=== PATIENT | male | born 1960 | race Hispanic/Latino ===

== ENCOUNTER 2018-01-06 01:17 | Emergency (ER) | payer SELFPAY ==
[2018-01-06] MEDS ORDERED: LIDOCAINE 1% W/EPI 1:100,000 MDV 50 ML VIAL ONE (01:27)
[2018-01-06] MEDS ORDERED: NA CHLORIDE 0.9% 1,000 ML ONE ×2 (01:37→03:25)
[2018-01-06 01:47] LABS: Absolute Monocytes 0.6 K/uL (0.1-1.3); Absolute Neutrophil 7.1 K/uL (1.8-8.0); Basophils % 0.7 % (0-1.3); Eosinophils % 0.7 % (0-4.4); Hematocrit 39.5 % (39.6-49.0); Lymphocytes % 11.4 % (15.3-44.8); MCH 30.7 pg (27.0-35.0); MCV 91.7 fL (80-100); Monocytes % 7.1 % (3.3-12.3); RBC Red Blood Cell Count 4.31 M/uL (4.33-5.43)
[2018-01-06] MEDS ORDERED: Levofloxacin500mg IV 500 MG/100 ML BAG IV ONE (01:48)
[2018-01-06] MEDS ORDERED: METRONIDAZOLE 500mg IVPB 500 MG/100 ML BAG IV ONE (01:48)
[2018-01-06] MEDS ORDERED: TETANUS & DIPHTHERIA TOX,ADULT 0.5 ML VIAL ONE (01:48)
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
[2018-01-06 01:57] LABS: Glucose Level 142 mg/dL (65-120)
[2018-01-06 01:58] LABS: BUN Blood Urea Nitrogen 9 mg/dL (6-20)
[2018-01-06 02:04] LABS: Bicarbonate 21 mEq/L (21-31); Sodium Level 129 mEq/L (135-145)
[2018-01-06 02:11] LABS: Protime INR 1.01
[2018-01-06 02:19] LABS: ALT/SGPT 26 IU/L (10-60); AST/SGOT 37 IU/L (10-42); Albumin 4.2 g/dL (3.2-5.5); Alkaline Phosphatase 76 IU/L (42-121); Bilirubin Direct 0.1 mg/dL (0-0.2); Bilirubin Total 0.5 mg/dL (0.3-1.2); Protein, Total 7.2 g/dL (6.0-8.3)
[2018-01-06 02:32] LABS: Alcohol Serum/Plasma 153 mg/dl
[2018-01-06 02:35] LABS: Potassium 2.8 mEq/L (3.6-5.0)
[2018-01-06 02:37] LABS: Lipase 19 U/L (22-51)
[2018-01-06] MEDS ORDERED: KCL 20 MEQ/100 mL IVPB 20 MEQ/100 ML BAG IV ONE (03:27)
[2018-01-06 04:20] LABS: Barbiturates NEGATIVE; Benzodiazepines NEGATIVE; Cocaine POSITIVE; METHAMPHETAM NEGATIVE (NEGATIVE); Opiates NEGATIVE; Phencyclidine NEGATIVE; THC Cannibis NEGATIVE
[2018-01-06] MEDS ORDERED: NS KCL 20MEQ 1,000 ML IV ONE (04:41)
[2018-01-06 04:50] LABS: Urine Blood 2+ (NEG); Urine Glucose NEGATIVE (NEG); Urine Protein NEGATIVE (NEG); Urine Specific Gravity <1.005 (1.005-1.030)
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
--- NOTE | 2018-01-06 13:47 | EKG ---
Test Date: 2018-01-06 Test Time: 01:38:51 Offset Printing Operator: YULIET MEASUREMENT RESULTS: Intervals: Rate: 95 DC: 162 QRSD: 112 QT: 376 QTc: 472 [place]: P: 62 DC: 162 QRS: 54 T: 64 INTERPRETIVE STATEMENTS: Normal sinus rhythm Normal ECG No previous ECG available for comparison Electronically Signed On 01-06-18 13:47:16 CDT by Ranjan Fernández
== END 2018-01-06 05:37 | disposition short-term general hospital (02) ==
LOC: ER 01:17
DX: S31.831A Laceration without foreign body of anus, initial encounter (principal); E87.6 Hypokalemia; V49.49XA Driver injured in collision with other motor vehicles in traffic accident, initial encounter; Z23 Encounter for immunization; Z72.0 Tobacco use; Z88.0 Allergy status to penicillin
CPT/HCPCS: 36415; 70450; 71260; 72125; 72170; 74177; 80048; 80076; 80307; 80320; 80329; 81003; 83690; 85025; 85610; 85730; 86850; 86900; 86901; 90714; 93005; 96361; 96365; 96368; 96375; 99285; J7030; Q9967